=== PATIENT | male | born 1970 | race Caucasian/White ===

== ENCOUNTER → 2016-04-19 | Outpatient (CLI) | payer OTHER ==
[~2016-04-19] MED LIST: GABA600T PO; IBUP80TA PO; LIDO1OIN2 TOP; LISI-538 PO; TYLE500T78 PO
--- NOTE | 2016-04-24 00:23 | ECWPNPC ---
PATIENT NAME: DERRICK ALLEN : 1970 GENDER: MALE VISIT DATE: 04/19/2016 DISCHARGE DATE: 04/19/16 1542 VISIT LOCKED DATE TIME: PHYSICIAN: ERWIN MELENDEZ RESOURCE: ERWIN MELENDEZ REASON FOR APPOINTMENT 1. WC, BACK HISTORY OF PRESENT ILLNESS HISTORY OF PRESENT ILLNESS: PAIN THE PATIENT DESCRIBES THE PAIN... 45 YEAR OLD MALE PATIENT WITH HISTORY OF CHRONIC LOW BACK PAIN. PATIENT DESCRIBES THE PAIN ACHING WITH A PAIN SCORE OF 1-2/10. PATIENT WAS HURT IN A WORK RELATED ACCIDENT IN 2005 WHEN HE HURT HIS BACK REACHING FOR A 75 POUND PIPE. PATIENT STATES THAT HE HAS DIFFICULTIES GOING DOWN THE STAIRS. PATIENT REPORTS THAT WALKING FOR LONG PERIODS OF TIME WILL INCREASE HIS PAIN. PATIENT STATES THAT PHYSICAL THERAPY DOES HELP WITH HIS PAIN ALONG WITH TAKING CYMBALTA, SKELAXIN, IBUPROFEN, AND TYLENOL . PATIENT ALSO HAS DECIDED THAT HE WOULD NOT LIKE TO MOVE FORWARD WITH A DCS BECAUSE HIS MAIN GOAL IS TO RETURN TO WORK AND HE HAS BEEN INFORMED THAT HE WOULD NOT BE ABLE TO WORK AT HIS JOB WITH THE IMPLANT. PATIENT DENIES UNEXPLAINABLE WEIGHT LOSS, FEVER, CHILLS, NEW CHANGES ON HIS URINARY OR BOWEL CONTROL. FALL RISK SCREENING: SCREENING :NO FALLS IN THE PAST YEAR CURRENT MEDICATIONS TAKING CYMBALTA 30 MG CAPSULE DELAYED RELEASE PARTICLES 1 CAPSULE ORALLY TWICE A DAY FOR PAIN WORKERS COMPENSATION, NOTES: PT WAITING TO GET PA TAKING SKELAXIN 800 MG TABLET 1 TABLET ORALLY WORKERS COMPENSATION BEFORE BEDTIME FOR SPASMS AND PAIN, NOTES: PT WAITING TO GET PA TAKING GABAPENTIN 800 MG TABLET 1 TABLET ORALLY THREE TIMES A DAY TAKING IBUPROFEN 800 MG TABLET 1 TABLET ORALLY THREE TIMES DAILY NEEDED FOR PAIN TAKING ACETAMINOPHEN 500 MG TABLET 1 TABLET NEEDED ORALLY EVERY 6 HRS TAKING LISINOPRIL 20 MG TABLET 1 TABLET ORALLY ONCE A DAY NOT-TAKING METHOCARBAMOL 750 MG TABLET 1 TABLET ORALLY EVERY 6 HRS PRN FOR SPAMS AND PAIN MDD3 NOT-TAKING LIDOCAINE 5 % OINTMENT 1 APPLICATION TO AFFECTED AREA NEEDED EXTERNALLY THREE TIMES A DAY MEDICATION LIST REVIEWED AND RECONCILED WITH THE PATIENT PAST MEDICAL HISTORY HYPERTENSION INTERVERTEBRAL DISC DISORDER WITH RADICULOPATHY ALLERGIES ENVIRONMENTAL SURGICAL HISTORY PARTIAL DISCECTOMY L4-L5 2007 BILATERAL KNEE ARTHROSCOPY 2014 FAMILY HISTORY NO FAMILY HISTORY DOCUMENTED. SOCIAL HISTORY TOBACCO USE ARE YOU A:NONSMOKER LEARNING BARRIERS / SPECIAL NEEDS ORIENTED TO PLAN OF CARE: PATIENT, PAIN MANAGEMENT PATIENT, ORIENTED TO PLAN OF CARE: PATIENT, PAIN MANAGEMENT PATIENT. NEW PATIENT PAIN DIARY TODAY'S VISITNOTES FROM 0-10, WHAT LEVEL IS YOUR PAIN TODAY?0 PAIN CLINIC PFS, CLERGY, PUBLIC HEALTH REFERRALS PFS REFERRAL NEEDED?NO CLERGY REFERRAL NEEDED?NO PUBLIC HEALTH REFERRAL NEEDED?NO WAS THE PROVIDER NOTIFIED OF ANY PERTINENT INFO?NO PFS REFERRAL NEEDED?NO CLERGY REFERRAL NEEDED?NO PUBLIC HEALTH REFERRAL NEEDED?NO WAS THE PROVIDER NOTIFIED OF ANY PERTINENT INFO?NO HOSPITALIZATION/MAJOR DIAGNOSTIC PROCEDURE SURGERIES INFLUENZA 2014 REVIEW OF SYSTEMS CONSTITUTIONAL: ANY CHANGE IN YOUR MEDICAL CONDITION? NO . CHILLS NO . FEVER NO . INFECTION: DO YOU HAVE NEW INFECTIONS? NO . DO YOU HAVE HISTORY OF MRSA? NO . MUSCULOSKELETAL: ANY NEW PATTERNS OF PAIN OR NUMBNESS? NO . GASTROENTEROLOGY: ANY NEW CHANGE IN BOWEL CONTROL? NO . GENITOURINARY: ANY NEW CHANGE IN BLADDER CONTROL? NO . IS THERE A CHANCE YOU COULD BE ? NO . HEMATOLOGY/LYMPH: DO YOU TAKE ANY BLOOD THINNERS? (FOR EXAMPLE- COUMADIN, PLAVIX, AGGRENOX, PLATEL, PRADAXA, OR XARELTO) NO . WHEN WAS YOUR LAST DOSE? DATE: TIME: . NEUROLOGY: HAVE YOU FALLEN IN THE PAST 6 MONTHS? NO . ANY NEW EXTREMITY NUMBNESS OR WEAKNESS? NO . CARDIOLOGY: DO YOU HAVE A PACEMAKER OR DEFIBRILLATOR? NO . RESPIRATORY: HAVE YOU BEEN SICK IN THE PAST WEEK? NO . FEVER NO . FLU LIKE SYMPTOMS? NO . COUGH NO . INTEGUMENTARY: DO YOU HAVE ANY RASHES OR OPEN SORES? YES, SORES ON LEFT FACE FROM CPAP STRAP. . ALLERGIC/IMMUNO: ARE YOU ALLERGIC TO SHELLFISH OR IV DYE? NO . ANY NEW ALLERGIES? NO . PSYCHIATRIC: DO YOU HAVE THOUGHTS OF HURTING YOURSELF OR SOMEONE ELSE? NO . ARE YOU ABUSED, NEGLECTED, OR IN AN UNSAFE ENVIRONMENT? NO . ENDOCRINOLOGY: ARE YOU DIABETIC? NO . OTHER: DO YOU NEED ANY PRESCRIPTIONS? NO . IF YES, PLEASE LIST: ____ . ANY NEW PROBLEMS WITH YOUR MEDICATIONS? NO . WHEN DID YOU LAST EAT? ____ . WHEN DID YOU LAST DRINK? ____ . WHAT DID YOU LAST DRINK? ____ . NAME OF PERSON DRIVING YOU HOME? ____ . DO YOU HAVE ANY OTHER QUESTIONS OR CONCERNS NO . REVIEWED BY: PROVIDER: ERWIN MELENDEZ MD . VITAL SIGNS WT 427.8 LBS, HT 78 IN, BMI 49.43 INDEX, BP 162/94 MM HG, HR 94 /MIN, RR 18 /MIN, TEMP 98.5 F, OXYGEN SAT % 94%, NA INITIALS SC 14:17, REVIEWED BY: CS. EXAMINATION : PATIENT IS ALERT O X 3 AND COOPERATIVE. PATIENT AMBULATES WITH A LEFT LEG LIMP. PATIENT DOES AMBULATE WITH HIS BACK SLIGHTLY BEND OVER AT 5 TO 10 DEGREES. PATIENT IS ABLE TO BEND HIS BACK AT 45 DEGREES WITH DIFFICULTIES AND PATIENT IS UNABLE TO EXTEND HIS BACK. LEFT LEG IS WEAKER IS STRENGTHEN ESPECIALLY AT FLEXION. MRI OF THE LUMBAR SPINE DONE ON 05-17-2015 SHOWS A POST RIGHT SIDED LAMINECTOMY AT L4-L5 AND A MODERATE TO LARGE RIGHT PARACENTRAL DISC EXTRUSION AT THIS LEVEL. A MILD CANAL STENOSIS AT L1-L2 WITH A SMALL DISC BULGE. MODERATE CANAL STENOSIS AT L3-L4 WITH A MODERATE SIZED DISC BULGE. SMALL DISC BULGE AT L5-S1 WITHOUT CANAL STENOSIS. 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 ALLEN'S PAIN MANAGEMENT CASE. AT THIS TIME THE PATIENT WILL CONTINUE WITH THE SAME MEDICATION REGIMEN BEFORE AND START ON IBUPROFEN AGAIN. PATIENT WAS ADVISED TO TAKE IBUPROFEN WITH FOOD. PATIENT RECEIVED A REFILL OF CYMBALTA, SKELAXIN, IBUPROFEN, AND ACETAMINOPHEN. I DISCUSSED THE RISK AND BENEFITS OF THE MEDICATIONS WITH THE PATIENT. I ADVISED THE PATIENT THAT EVEN THOUGH CYMBALTA IS AN ANTIDEPRESSANT, IT HAS BEEN APPROVED FOR BACK PAIN. I WOULD LIKE THE PATIENT TO RETURN IN 2 MONTHS FOR FURTHER MEDICATION MANAGEMENT AND TO DISCUSS THE POSSIBILITY OF OTHER INTERVENTIONS. INSTRUCTIONS WERE GIVEN, QUESTIONS WERE ANSWERED, PATIENT REPORTS UNDERSTANDING AND AGREES WITH THE PLAN. I, NGHIA MENENDEZ, DOCUMENTED THE ABOVE INFORMATION ACTING A SCRIBE FOR DR. MELENDEZ. I HAVE REVIEWED THE ABOVE DOCUMENT, WRITTEN BY JOSE MOORE AND I VERIFY THAT IT IS ACCURATE. OTHERS REFILL IBUPROFEN TABLET, 800 MG, 1 TABLET, ORALLY, THREE TIMES DAILY NEEDED FOR PAIN MDD3, 30 DAY(S), 100, REFILLS 2 REFILL ACETAMINOPHEN TABLET, 500 MG, 1 TO 2 TABLET NEEDED, ORALLY FOR PAIN, EVERY 6 HRS MDD6, 30 DAY(S), 100, REFILLS 2 PROCEDURES PN WORKMANS' COMP OPINION IN YOUR OPINION, WAS THE INCIDENT THAT THE PATIENT DESCRIBED THE COMPETENT MEDICAL CAUSE OF THIS INJURY/ILLNESS? YES ARE THE PATIENT'S COMPLAINTS CONSISTENT WITH HIS/HER HISTORY OF THE INJURY/ILLNESS? YES IS THE PATIENT'S HISTORY OF THE INJURY/ILLNESS CONSISTENT WITH YOUR OBJECTIVE FINDING? YES WHAT IS THE PERCENTAGE OF TEMPORARY IMPAIRMENT? MODERATE TO MARKED = 66.7% IS THE PATIENT WORKING? NO DOCTOR ON SITE: ERWIN MOCTEZUMA MD PROCEDURE CODES FA211 ESTABILISHED PATIENT [facility] FACILITY CHARGE G8730 PAIN ASSESS POS TOOL F/U PLAN DOC G8427 DOC MEDS VERIFIED W/PT OR RE FOLLOW UP 2 MONTHS ELECTRONICALLY SIGNED BY ERWIN MELENDEZ MD ON 04/23/2016 AT 11:36 PM EST DISCLAIMER : THIS IS A VISIT SUMMARY EXTRACTED FROM THE [email or web address] CHART. IT IS NOT A COPY OF THE [employer] PROGRESS NOTE. JEANETHD
== END ==
LOC: M PAIN 14:20
PROVIDERS: ATTEND Anesthesiology
DX: M96.1 Postlaminectomy syndrome, not elsewhere classified (principal); M51.16 Intervertebral disc disorders with radiculopathy, lumbar region; M47.816 Spondylosis without myelopathy or radiculopathy, lumbar region; Z79.899 Other long term (current) drug therapy; I10 Essential (primary) hypertension

== ENCOUNTER → 2016-06-20 | Outpatient (CLI) | payer OTHER ==
--- NOTE | 2016-07-01 23:49 | ECWPNPC ---
PATIENT NAME: DERRICK ALLEN : 1970 GENDER: MALE VISIT DATE: 06/20/2016 DISCHARGE DATE: 06/20/16 1547 VISIT LOCKED DATE TIME: PHYSICIAN: ERWIN MELENDEZ RESOURCE: ERWIN MELENDEZ REASON FOR APPOINTMENT 1. W/C BACK HISTORY OF PRESENT ILLNESS GENERAL: 45 YEAR OLD MALE PATIENT WITH HISTORY OF CHRONIC LOW BACK PAIN. PATIENT DESCRIBES THE PAIN ACHING AND SORE WITH A PAIN SCORE OF 1-2/10 ON TODAY'S VISIT. PATIENT WAS HURT IN A WORK RELATED ACCIDENT IN 2005 WHEN HE HURT HIS BACK REACHING FOR A 75 POUND PIPE. PATIENT STATES THAT HE HAS DIFFICULTIES GOING DOWN THE STAIRS. PATIENT REPORTS THAT WALKING FOR LONG PERIODS OF TIME AND SITTING FOR LONG PERIODS OF TIME WILL INCREASE HIS PAIN. PATIENT REPORTS THAT HE HAS RADIATING PAIN FROM HIS LOW BACK DOWN TO HIS LEFT LEG. PATIENT REPORTS THAT HE HAS A NEW JOB NOW WORKING FOR [employer]. PATIENT REPORTS THAT SKELAXIN HELPS WITH MUSCLE SPASTICITY AND HELPS HIM TO SLEEP AT NIGHT. PATIENT DENIES UNEXPLAINABLE WEIGHT LOSS, FEVER, CHILLS, NEW CHANGES ON HIS URINARY OR BOWEL CONTROL. CURRENT MEDICATIONS TAKING GABAPENTIN 800 MG TABLET 1 TABLET ORALLY THREE TIMES A DAY TAKING LISINOPRIL 20 MG TABLET 1 TABLET ORALLY ONCE A DAY TAKING IBUPROFEN 800 MG TABLET 1 TABLET ORALLY THREE TIMES DAILY NEEDED FOR PAIN MDD3 TAKING ACETAMINOPHEN 500 MG TABLET 1 TO 2 TABLET NEEDED ORALLY FOR PAIN EVERY 6 HRS MDD6 TAKING CYMBALTA 30 MG CAPSULE DELAYED RELEASE PARTICLES 1 CAPSULE ORALLY TWICE A DAY FOR PAIN WORKERS COMPENSATION MDD2, NOTES: PT WAITING TO GET PA TAKING SKELAXIN 800 MG TABLET 1 TABLET ORALLY WORKERS COMPENSATION BEFORE BEDTIME FOR SPASMS AND PAIN, NOTES: PT WAITING TO GET PA NOT-TAKING METHOCARBAMOL 750 MG TABLET 1 TABLET ORALLY EVERY 6 HRS PRN FOR SPAMS AND PAIN MDD3 NOT-TAKING LIDOCAINE 5 % OINTMENT 1 APPLICATION TO AFFECTED AREA NEEDED EXTERNALLY THREE TIMES A DAY MEDICATION LIST REVIEWED AND RECONCILED WITH THE PATIENT PAST MEDICAL HISTORY HYPERTENSION INTERVERTEBRAL DISC DISORDER WITH RADICULOPATHY ALLERGIES ENVIRONMENTAL SURGICAL HISTORY PARTIAL DISCECTOMY L4-L5 2007 BILATERAL KNEE ARTHROSCOPY 2014 FAMILY HISTORY NO FAMILY HISTORY DOCUMENTED. SOCIAL HISTORY GENERAL: TOBACCO USE ARE YOU A:NONSMOKER LEARNING BARRIERS / SPECIAL NEEDS ORIENTED TO PLAN OF CARE: PATIENT, PAIN MANAGEMENT PATIENT, ORIENTED TO PLAN OF CARE: PATIENT, PAIN MANAGEMENT PATIENT. NEW PATIENT PAIN DIARY TODAY'S VISITNOTES FROM 0-10, WHAT LEVEL IS YOUR PAIN TODAY?0 PAIN CLINIC PFS, CLERGY, PUBLIC HEALTH REFERRALS PFS REFERRAL NEEDED?NO CLERGY REFERRAL NEEDED?NO PUBLIC HEALTH REFERRAL NEEDED?NO WAS THE PROVIDER NOTIFIED OF ANY PERTINENT INFO?NO PFS REFERRAL NEEDED?NO CLERGY REFERRAL NEEDED?NO PUBLIC HEALTH REFERRAL NEEDED?NO WAS THE PROVIDER NOTIFIED OF ANY PERTINENT INFO?NO HOSPITALIZATION/MAJOR DIAGNOSTIC PROCEDURE SURGERIES INFLUENZA 2014 VITAL SIGNS WT 426.4 LBS, HT 78 IN, BMI 49.27 INDEX, BP 145/79 MM HG, HR 77 /MIN, RR 18 /MIN, TEMP 97.2 F, OXYGEN SAT % 96%, SAFE IN ENV? (Y/N) YES, NA INITIALS SC14:16, REVIEWED BY: YESSENIA. EXAMINATION GENERAL: PATIENT IS ALERT O X 3 AND COOPERATIVE. PATIENT'S LEFT LEG IS WEAKER COMPARED TO THE RIGHT LEG. MRI OF THE LUMBAR SPINE DONE ON 05-17-2015 SHOWS A POST RIGHT SIDED LAMINECTOMY AT L4-L5 AND A MODERATE TO LARGE RIGHT PARACENTRAL DISC EXTRUSION AT THIS LEVEL. A MILD CANAL STENOSIS AT L1-L2 WITH A SMALL DISC BULGE. MODERATE CANAL STENOSIS AT L3-L4 WITH A MODERATE SIZED DISC BULGE. SMALL DISC BULGE AT L5-S1 WITHOUT CANAL STENOSIS. 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 ALLEN'S PAIN MANAGEMENT CASE. PATIENT WILL RECEIVE A REFILL OF CYMBALTA, SKELAXIN, GABAPENTIN, AND IBUPROFEN TODAY. DISCUSSED WITH THE PATIENT THAT SINCE HE IS DOING RELATIVELY WELL HE WILL FOLLOW UP WITH ME IN 2 MONTHS. INSTRUCTIONS WERE GIVEN, QUESTIONS WERE ANSWERED, PATIENT REPORTS UNDERSTANDING AND AGREES WITH THE PLAN. I, NGHIA MENENDEZ, DOCUMENTED THE ABOVE INFORMATION ACTING A SCRIBE FOR DR. MELENDEZ. I HAVE REVIEWED THE ABOVE DOCUMENT, WRITTEN BY NGHIA MENENDEZ SCRIBE AND I VERIFY THAT IT IS ACCURATE. OTHERS REFILL GABAPENTIN TABLET, 800 MG, 1 TABLET, ORALLY, THREE TIMES A DAY, 30 DAY(S), 90 TABLET, REFILLS 2 REFILL IBUPROFEN TABLET, 800 MG, 1 TABLET, ORALLY, THREE TIMES DAILY NEEDED FOR PAIN MDD3, 30 DAY(S), 100, REFILLS 2 PROCEDURES PN WORKMANS' COMP OPINION IN YOUR OPINION, WAS THE INCIDENT THAT THE PATIENT DESCRIBED THE COMPETENT MEDICAL CAUSE OF THIS INJURY/ILLNESS? YES ARE THE PATIENT'S COMPLAINTS CONSISTENT WITH HIS/HER HISTORY OF THE INJURY/ILLNESS? YES IS THE PATIENT'S HISTORY OF THE INJURY/ILLNESS CONSISTENT WITH YOUR OBJECTIVE FINDING? YES WHAT IS THE PERCENTAGE OF TEMPORARY IMPAIRMENT? MODERATE TO MARKED = 66.7% IS THE PATIENT WORKING? YES DOCTOR ON SITE: ERWIN MOCTEZUMA MD PROCEDURE CODES FA211 ESTABILISHED PATIENT [facility] FACILITY CHARGE G8730 PAIN ASSESS POS TOOL F/U PLAN DOC G8427 DOC MEDS VERIFIED W/PT OR RE DISPOSITION & COMMUNICATION FOLLOW UP 2 MONTHS ELECTRONICALLY SIGNED BY ERWIN MELENDEZ MD ON 07/01/2016 AT 08:56 PM EDT DISCLAIMER : THIS IS A VISIT SUMMARY EXTRACTED FROM THE [employer] CHART. IT IS NOT A COPY OF THE [employer] PROGRESS NOTE. MARI
== END ==
LOC: M PAIN 14:20
PROVIDERS: ATTEND Anesthesiology
DX: Z09 Encounter for follow-up examination after completed treatment for conditions other than malignant neoplasm (principal); G89.29 Other chronic pain; M96.1 Postlaminectomy syndrome, not elsewhere classified; M51.16 Intervertebral disc disorders with radiculopathy, lumbar region; M47.816 Spondylosis without myelopathy or radiculopathy, lumbar region; M51.17 Intervertebral disc disorders with radiculopathy, lumbosacral region; I10 Essential (primary) hypertension; J30.89 Other allergic rhinitis; Z79.1 Long term (current) use of non-steroidal anti-inflammatories (NSAID); Z79.899 Other long term (current) drug therapy